=== PATIENT | female | born 1955 | race Caucasian/White ===

== ENCOUNTER 2024-06-02 10:00 | Outpatient (RCR) | payer MEDICARE, OTHER, SELFPAY | END 2024-08-19 13:48 | disposition home or self-care (01) | PROVIDERS: PCP Family Medicine; Visit Provider Family Medicine | DX: M62.830 Muscle spasm of back (principal); M54.9 Dorsalgia, unspecified; Z51.89 Encounter for other specified aftercare; M79.604 Pain in right leg; M62.81 Muscle weakness (generalized); M54.50 Low back pain, unspecified | CPT/HCPCS: 97110; 97140; 97161 ==

== ENCOUNTER 2025-05-31 10:00 | Outpatient (CLI) | payer MEDICARE, OTHER, SELFPAY | END 2025-05-31 10:01 | disposition home or self-care (01) | LOC: NFLDREF 06-04 05:59 | DX: N30.00 Acute cystitis without hematuria (principal) | CPT/HCPCS: 87086 ==